=== PATIENT | female | born 1940 | race Hispanic/Latino ===

== ENCOUNTER 2021-12-20 15:35 | Outpatient (CLI) | payer MEDICARE ==
--- NOTE | 2021-12-20 17:53 | XRay Report ---
RIGHT ANKLE 3 VIEW(S) INDICATION / CLINICAL INFORMATION: POST FALL, PAIN AND SWELLING COMPARISON: None available. FINDINGS: BONES / JOINT(S): No acute fracture or subluxation. No significant arthritis. Subjective osteopenia. SOFT TISSUES: Mild soft tissue swelling of the ankle and foot. ADDITIONAL FINDINGS: None. IMPRESSION: 1. No fracture. Mild soft tissue swelling. Signer Name: Bart Aguilar MD Signed: 12/20/2021 5:48 PM Workstation Name: [email or web address]
== END 2021-12-20 15:36 | disposition home or self-care (01) ==
LOC: XRAY 15:35
PROVIDERS: ATTEND Internal Medicine
DX: M25.571 Pain in right ankle and joints of right foot (principal); M79.89 Other specified soft tissue disorders